=== PATIENT | female | born 1980 | race African-American/Black ===

== ENCOUNTER 2019-10-10 01:03 | Emergency (ER) | payer OTHER ==
[~2019-10-10] VITALS: Ht 154.9 cm; Wt 61.2 kg
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
--- NOTE | 2019-10-10 01:10 | NUR ---
ED Nurse Note: URINE COLLECTED AND SENT TO LAB
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
[2019-10-10] MEDS ORDERED: HYDROcodone/Acetamin 5/325 tab ORAL ONE (01:15)
[2019-10-10 01:17] VITALS: BP 148/82
--- NOTE | 2019-10-10 01:27 | NUR ---
ED Nurse Note: call made to [facility], spoke with jig boring machine set up operator #[id number], stated officers will be dispatched to [place]
--- NOTE | 2019-10-10 01:30 | NUR ---
ED Nurse Note: PT WENT FOR XR
--- NOTE | 2019-10-10 01:50 | NUR ---
ED Nurse Note: PT IS BACK FROM CT
--- NOTE | 2019-10-10 01:57 | NUR ---
ED Nurse Note: [employer] officer Kia came to take report. Addendum: 10/10/19 at 0212 by [email or web address] [employer] OFFICER Sohail
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
--- NOTE | 2019-10-10 02:21 | Diagnostic Imaging Report ---
EXAM: CT Maxillofacial Without Intravenous Contrast CLINICAL HISTORY: TRAUMA TECHNIQUE: Axial computed tomography images of the face without intravenous contrast. CTDI is 15 mGy and DLP is 407 mGy-cm. One or more of the following dose reduction techniques were used: automated exposure control, adjustment of the mA and/or kV according to patient size, use of iterative reconstruction technique. COMPARISON: No relevant prior studies available. FINDINGS: Bones/joints: No acute fracture. Soft tissues: There is soft tissue edema of the left periorbital and left facial region. Orbits: Unremarkable. Sinuses: Mild mucosal thickening of the ethmoid sinus and right maxillary sinus. No air-fluid levels. IMPRESSION: 1. There is soft tissue edema of the left periorbital and left facial region. 2. No acute fracture.
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
[2019-10-10] MEDS ORDERED: PERCOCET 5-3251 EACH ORAL (02:55)
[2019-10-10] MEDS ORDERED: IBUPROFEN600 M1 ORAL (02:55)
[2019-10-10 03:00] VITALS: BP 137/86
[2019-10-10 03:05] VITALS: BP 137/86
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
== END 2019-10-10 03:05 | disposition home or self-care (01) ==
LOC: EMR 01:21
DX: S09.90XA Unspecified injury of head, initial encounter (principal); S00.83XA Contusion of other part of head, initial encounter; M54.6 Pain in thoracic spine; Y04.2XXA Assault by strike against or bumped into by another person, initial encounter; Y92.9 Unspecified place or not applicable; R68.84 Jaw pain
CPT/HCPCS: 70450; 70486; 72128; 81025; Z7502; 99284